=== PATIENT | female | born 1990 | race Caucasian/White ===

== ENCOUNTER 2021-10-23 09:44 | Day surgery (SDC) | payer OTHER ==
[~2021-10-23 09:44] MED LIST: Sodium Chloride 0.9% 10 ML Syringe FLUSH PRN; Sodium Chloride 0.9% 2.5 ML Syringe FLUSH PRN; Sodium Chloride 0.9% 20 ML SDV IV PRN; ceFAZolin 1 GM Vial IV SCH
[2021-10-23] MEDS ORDERED: Albuterol 0.083% 2.5 MG/3 ML Neb Soln NEB PRN (10:20)
[2021-10-23] MEDS ORDERED: fentaNYL 100 MCG/2 ML SDV IVPUSH PRN (10:20)
[2021-10-23] MEDS ORDERED: Metoclopramide 10 MG/2 ML SDV IVPUSH PRN (10:20)
[2021-10-23] MEDS ORDERED: Naloxone 0.4 MG/ML SDV IVPUSH PRN (10:20)
[2021-10-23] MEDS ORDERED: Ondansetron 4 MG/2 ML SDV IVPUSH PRN ×2 (10:20→13:21)
[2021-10-23] MEDS ORDERED: Ondansetron 4 MG/2 ML SDV ONE (10:36)
[2021-10-23] MEDS ORDERED: Lidocaine 2% 5 ML SDV ONE (10:36)
[2021-10-23] MEDS ORDERED: Propofol 200 MG/20 ML SDV ONE (10:36)
[2021-10-23] MEDS ORDERED: Sugammadex Sodium 200 MG/2 ML VIAL ONE (10:36)
[2021-10-23] MEDS ORDERED: Dexamethasone 4 MG/ML 5 ML MDV ONE (10:36)
[2021-10-23] MEDS ORDERED: Rocuronium Bromide 50 MG/5 ML Syringe ONE (10:36)
[2021-10-23] MEDS ORDERED: fentaNYL 100 MCG/2 ML SDV ONE ×2 (10:37→13:09)
[2021-10-23] MEDS ORDERED: Midazolam 1 MG/ML 2 ML SDV ONE (10:37)
[2021-10-23] MEDS ORDERED: Lactated Ringers 1,000 ML IV SCH (10:45)
[2021-10-23] MEDS ORDERED: Methylene Blue 50 MG/10 ML Ampule ONE (11:32)
[2021-10-23] MEDS ORDERED: Octyl 2-Cyanoacrylate 1 Tube ONE (11:33)
[2021-10-23] MEDS ORDERED: Bupivacaine 0.25% 30 ML SDV ONE (11:33)
[2021-10-23] MEDS ORDERED: Fluorescein 5 ML Vial ONE (12:19)
[2021-10-23] MEDS ORDERED: Ketorolac 30 MG/ML SDV ONE (12:51)
[2021-10-23] MEDS ORDERED: Furosemide 40 MG/4 ML VIAL ONE (12:58)
[2021-10-23] MEDS ORDERED: Promethazine 25 MG/ML SDV IM PRN (13:21)
[2021-10-23] MEDS ORDERED: Ketorolac 30 MG/ML SDV IVPUSH ONE (13:21)
[2021-10-23] MEDS: HYDROmorphone 1 MG/ML Syringe IVPUSH PRN ×2 (13:56→14:10)
[2021-10-23] MEDS: Morphine 4 MG/ML VIAL IVPUSH PRN (16:32)
[2021-10-23] MEDS: Lactated Ringers 1,000 ML IV SCH (16:35)
[2021-10-23] MEDS: Ketorolac 30 MG/ML SDV IVPUSH SCH (18:09)
[2021-10-23] MEDS: Acetaminophen/oxyCODONE 325-5 MG Tab PO PRN (20:07)
[2021-10-24] MEDS: Ketorolac 30 MG/ML SDV IVPUSH SCH ×2 (00:32→07:41)
[2021-10-24] MEDS: Lactated Ringers 1,000 ML IV SCH (00:35)
[2021-10-24] MEDS: Acetaminophen/oxyCODONE 325-5 MG Tab PO PRN ×3 (02:38→10:27)
[2021-10-24] MEDS: Morphine 4 MG/ML VIAL IVPUSH PRN (03:37)
[2021-10-24 06:08] LABS: BLOOD UREA NITROGEN,BUN 11 mg/dL (7.0-18.0); CARBON DIOXIDE,CO2 26.2 mmol/L (21.0-32.0); CHLORIDE,CL 98 mmol/L (98-107); GLUCOSE RANDOM 123 mg/dL (74-106); POTASSIUM,K 4.2 mmol/L (3.5-5.1); SODIUM,NA 133 mmol/L (136-145)
== END 2021-10-24 11:45 | disposition home or self-care (01) ==
LOC: MW.SDS 09:44 → MW.MS 15:40 → MW.SDS 10-24 11:45
PROVIDERS: ATTEND Obstetrics & Gynecology
DX: N83.8 Other noninflammatory disorders of ovary, fallopian tube and broad ligament (principal); N94.6 Dysmenorrhea, unspecified; F32.A Depression, unspecified; I10 Essential (primary) hypertension; E66.9 Obesity, unspecified; Z79.899 Other long term (current) drug therapy
CPT/HCPCS: 36415; 58301; 58552; 80048; 85025; A9270; J0131; J0690; J1100; J1170; J1885; J1940; J2250; J2270; J2405; J2704; J3010; J3490; J7030; J7120

== ENCOUNTER 2021-11-13 15:17 | Day surgery (SDC) | payer OTHER ==
[2021-11-13] MEDS ORDERED: Dexamethasone 4 MG/ML 5 ML MDV ONE (15:27)
[2021-11-13] MEDS ORDERED: Dexmedetomidine 200 MCG/2 ML SDV ONE (15:27)
[2021-11-13] MEDS ORDERED: Propofol 200 MG/20 ML SDV ONE (15:28)
[2021-11-13] MEDS ORDERED: Midazolam 1 MG/ML 2 ML SDV ONE (15:28)
[2021-11-13] MEDS ORDERED: fentaNYL 100 MCG/2 ML SDV ONE (15:28)
[2021-11-13] MEDS ORDERED: Esmolol 100 MG/10 ML SDV ONE (15:29)
[2021-11-13] MEDS ORDERED: Succinylcholine/Sod PF 100 MG/5 ML SYRINGE IV ONE (15:29)
[2021-11-13] MEDS ORDERED: Rocuronium Bromide 50 MG/5 ML Syringe ONE (15:29)
[2021-11-13] MEDS ORDERED: Sugammadex Sodium 200 MG/2 ML VIAL ONE (16:31)
[2021-11-13] MEDS ORDERED: Ondansetron 4 MG/2 ML SDV ONE (16:31)
== END 2021-11-13 20:04 | disposition home or self-care (01) ==
LOC: MW.SDS 15:17 → MW.MS 15:25 → MW.SDS 20:04
PROVIDERS: ATTEND Obstetrics & Gynecology
DX: S30.23XA Contusion of vagina and vulva, initial encounter (principal); N99.820 Postprocedural hemorrhage of a genitourinary system organ or structure following a genitourinary system procedure; F32.A Depression, unspecified; F41.9 Anxiety disorder, unspecified; I10 Essential (primary) hypertension; E66.9 Obesity, unspecified; Z68.30 Body mass index [BMI] 30.0-30.9, adult; Z90.710 Acquired absence of both cervix and uterus; Z01.812 Encounter for preprocedural laboratory examination; Z20.822 Contact with and (suspected) exposure to COVID-19; Z79.899 Other long term (current) drug therapy; X58.XXXA Exposure to other specified factors, initial encounter
CPT/HCPCS: 36415; 57000; 85027; 86850; 86900; 86901; 87635; J0330; J0690; J1100; J2250; J2405; J2704; J3010; J3490; U0002